=== PATIENT | female | born 1970 | race Caucasian/White ===

== ENCOUNTER → 2016-04-25 | Outpatient (CLI) | payer BC ==
[~2016-04-25] MED LIST: ATEN25TA PO; CIPR-250 PO; CITA20TA4 PO; COQ-100C2 PO; IBUP-1114 PO; LOMO2.5T PO; NORC5TAB PO; NORT25CA2 PO; OMEP40CA2 PO; TRAZ100T4 PO; VITA100T98 PO
--- NOTE | 2016-04-25 11:35 | REP ---
MRI THORACIC SPINE WITHOUT CONTRAST: HISTORY: Mid back pain. A small right paracentral disc protrusion is present at the T3-4 level. There is minimal effacement of the thecal sac without spinal cord compression. The T3 neural foramina are patent. There is no other disc bulge or herniation. The remaining neural foramina are patent. The spinal cord is normal in signal intensity. There is no intradural extramedullary lesion. A hemangioma is present in the T9 vertebral body. Normal signal intensity is present in the remaining thoracic vertebral bodies. Anterior osteophytes are present throughout the thoracic spine. IMPRESSION: Small right paracentral disc protrusion at the T3-4 level without spinal cord compression. Signed by Jefferson Cunningham MD 04/25/2016 11:36 A
== END ==
LOC: M RAD 10:30
PROVIDERS: ATTEND Neurological Surgery
DX: M43.04 Spondylolysis, thoracic region (principal)

== ENCOUNTER → 2016-06-06 | Outpatient (CLI) | payer BC ==
[2016-06-06 09:04] LABS: ALBUMIN 3.5 GM/DL (3.2-5.2); ALBUMIN/GLOBULIN RATIO 0.97 (1.00-1.93); ALKALINE PHOSPHATASE 140 U/L (45-117); ALT/SGPT 27 U/L (12-78); AST/SGOT 21 U/L (15-37); BILIRUBIN,DIRECT < 0.1 MG/DL (0.0-0.2); BILIRUBIN,TOTAL 0.3 MG/DL (0.2-1.0); TOTAL PROTEIN 7.1 GM/DL (6.4-8.2)
== END ==
LOC: M LAB 07:56
PROVIDERS: ATTEND Internal Medicine Rheumatology
DX: M35.9 Systemic involvement of connective tissue, unspecified (principal); K76.0 Fatty (change of) liver, not elsewhere classified; Z79.899 Other long term (current) drug therapy

== ENCOUNTER → 2016-06-06 | Outpatient (CLI) | payer BC ==
[2016-06-06 09:01] LABS: BASO % 0.5 % (0.0-1.0); EOS # 0.2 K/mm3 (0.0-0.50); LARGE UNSTAINED CELL # 0.1 K/mm3 (0.0-0.4); LARGE UNSTAINED CELL % 1.3 % (0.0-4.0); LYMPH # 1.9 K/mm3 (1.5-4.5); LYMPH % 28.6 % (24.0-44.0); MEAN CORPUSCULAR HEMOGLOBIN 29.7 pg (27.0-33.0); MEAN CORPUSCULAR HGB CONC 34.3 g/dl (32.0-36.5); MEAN CORPUSCULAR VOLUME 86.8 fl (80.0-96.0); MONO # 0.3 K/mm3 (0.0-0.8); MONO % 5.1 % (0.0-5.0); NEUTROPHILS # 3.8 K/mm3 (1.8-7.7); NEUTROPHILS % 60.6 % (36.0-66.0); PLATELET COUNT, AUTOMATED 243 k/mm3 (150-450); RED CELL DISTRIBUTION WIDTH 12.3 % (11.5-14.5); WHITE BLOOD COUNT 6.3 K/mm3 (4.0-10.0)
[2016-06-06 09:04] LABS: ALBUMIN 3.4 GM/DL (3.2-5.2); ALKALINE PHOSPHATASE 143 U/L (45-117); ALT/SGPT 27 U/L (12-78); ANION GAP 6 MEQ/L (8-16); AST/SGOT 23 U/L (15-37); BILIRUBIN,TOTAL 0.3 MG/DL (0.2-1.0); BLOOD UREA NITROGEN 10 MG/DL (7-18); CALCIUM LEVEL 9.5 MG/DL (8.5-10.1); CARBON DIOXIDE LEVEL 27 MEQ/L (21-32); CHLORIDE LEVEL 108 MEQ/L (98-107); GLOMERULAR FILTRATION RATE > 60.0 (>58); GLUCOSE, FASTING 128 MG/DL (70-105); POTASSIUM SERUM 3.7 MEQ/L (3.5-5.1); SODIUM LEVEL 141 MEQ/L (136-145); TOTAL PROTEIN 6.8 GM/DL (6.4-8.2)
== END ==
LOC: M LAB 07:58
PROVIDERS: ATTEND Psychiatry & Neurology Neurology
DX: R51 Headache (principal)

== ENCOUNTER 2016-06-29 11:35 | Emergency (ER) | payer BC ==
[~2016-06-29] VITALS: Ht 149.9 cm; Wt 61.7 kg
[2016-06-29 11:36] VITALS: BP 139/67
[2016-06-29] MEDS ORDERED: ZONI50CA3 (12:01)
[2016-06-29] MEDS ORDERED: RANI150T (12:01)
[2016-06-29] MEDS ORDERED: RIZA10TA4 (12:01)
[2016-06-29] MEDS ORDERED: PROA1AER (12:01)
[2016-06-29] MEDS ORDERED: ASMA16.7 (12:01)
[2016-06-29] MEDS ORDERED: AZIT500T2 PO (12:01)
[2016-06-29] MEDS ORDERED: NS 1,000 ML IV ONE (12:15)
[2016-06-29] MEDS ORDERED: KETOROLAC 30 MG/ML VIAL (J1885) IV ONE (12:15)
[2016-06-29 12:49] LABS: BASO % 0.4 % (0.0-1.0); EOS # 0.2 K/mm3 (0.0-0.50); EOS % 2.6 % (0.0-3.0); LARGE UNSTAINED CELL # 0.1 K/mm3 (0.0-0.4); LARGE UNSTAINED CELL % 1.7 % (0.0-4.0); LYMPH # 2.3 K/mm3 (1.5-4.5); LYMPH % 30.8 % (24.0-44.0); MEAN CORPUSCULAR HEMOGLOBIN 29.5 pg (27.0-33.0); MEAN CORPUSCULAR HGB CONC 33.8 g/dl (32.0-36.5); MEAN CORPUSCULAR VOLUME 87.4 fl (80.0-96.0); MONO # 0.3 K/mm3 (0.0-0.8); MONO % 4.8 % (0.0-5.0); NEUTROPHILS # 4.3 K/mm3 (1.8-7.7); NEUTROPHILS % 59.8 % (36.0-66.0); PLATELET COUNT, AUTOMATED 297 k/mm3 (150-450); RED CELL DISTRIBUTION WIDTH 13.1 % (11.5-14.5); WHITE BLOOD COUNT 7.2 K/mm3 (4.0-10.0)
[2016-06-29] MEDS ORDERED: ONDANSETRON 4MG/2ML VIAL (J2405) IV ONE (13:00)
[2016-06-29 13:06] LABS: ALKALINE PHOSPHATASE 160 U/L (45-117); ALT/SGPT 23 U/L (12-78); AMYLASE 53 U/L (25-115); ANION GAP 9 MEQ/L (8-16); AST/SGOT 23 U/L (15-37); BILIRUBIN,DIRECT 0.1 MG/DL (0.0-0.2); BILIRUBIN,TOTAL 0.4 MG/DL (0.2-1.0); BLOOD UREA NITROGEN 12 MG/DL (7-18); CALCIUM LEVEL 9.6 MG/DL (8.5-10.1); CARBON DIOXIDE LEVEL 26 MEQ/L (21-32); CHLORIDE LEVEL 104 MEQ/L (98-107); CREATININE FOR GFR 0.91 MG/DL (0.55-1.02); GLOMERULAR FILTRATION RATE > 60.0 (>58); GLUCOSE, FASTING 85 MG/DL (70-105); POTASSIUM SERUM 3.7 MEQ/L (3.5-5.1); SODIUM LEVEL 139 MEQ/L (136-145)
[2016-06-29] MEDS ORDERED: ISOVUE-370 76% 100ML VIAL (Q9967) As Ordered ONE (13:09)
[2016-06-29] MEDS ORDERED: BENT20TA PO (13:43)
[2016-06-29] MEDS ORDERED: ZOFR4TAB3 PO (13:44)
--- NOTE | 2016-06-29 13:55 | REP ---
CT STUDY OF THE ABDOMEN AND PELVIS WITH IV BUT WITHOUT ORAL CONTRAST: HISTORY: Question diverticulitis. Left upper quadrant pain. CT contrast dose: 100 mL of Isovue 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 Air and stool is seen in a nondistended colon. The lung bases are clear. The liver and spleen are normal in size and homogeneous in texture. No adrenal lesion is seen on either side. The gallbladder is unremarkable. No pancreatic abnormality is seen. Kidneys enhance symmetrically and are morphologically intact. A normal caliber aorta is seen. No retroperitoneal mass or adenopathy is seen. A normal non-inflamed air-filled appendix is seen along the right lateral pelvic side wall. No ovarian abnormality is seen. The uterus is surgically absent. The urinary bladder is unremarkable. No abdominal wall defect is seen. No urinary tract calculus or hydronephrosis is seen. There is mild mural thickening involving the left colon in the descending segment distal to the splenic flexure. There is no evidence of diverticulosis or diverticulitis. Large bowel loops are otherwise unremarkable. There is air and fluid in nondilated small bowel loops on axial CT images. No free air or ascites is seen. Bone window settings show no bony destructive lesion. IMPRESSION: Mild mural thickening involving the descending colon question enterocolitis. No other acute abdominal or pelvic abnormality. Signed by Abdi Polk MD 06/29/2016 06:19 P
== END 2016-06-29 14:06 | disposition home or self-care (01) ==
LOC: M ED 13:08
DX: K58.9 Irritable bowel syndrome, unspecified (principal); K83.9 Disease of biliary tract, unspecified; Z79.899 Other long term (current) drug therapy; Z79.51 Long term (current) use of inhaled steroids; Z88.0 Allergy status to penicillin; Z88.8 Allergy status to other drugs, medicaments and biological substances; Z88.1 Allergy status to other antibiotic agents; Z91.040 Latex allergy status
CPT/HCPCS: 74177; 80048; 80076; 81001; 82150; 83690; 85025; 96374; 96375; 99282; J1885; J2405; Q9967

== ENCOUNTER 2016-09-16 09:42 | Emergency (ER) | payer BC ==
[~2016-09-16] VITALS: Ht 149.9 cm; Wt 59.0 kg
[~2016-09-16 09:42] MED LIST changes: +ASMA16.7; +AZIT500T2 PO; +BENT20TA PO; +NORC1TAB4 PO; -NORC5TAB PO; +PROA1AER; +RANI150T; +RIZA10TA4; +ZOFR4TAB3 PO; +ZONI50CA3
[2016-09-16 12:00] LABS: BASO % 0.4 % (0.0-1.0); EOS # 0.1 K/mm3 (0.0-0.50); EOS % 1.8 % (0.0-3.0); LARGE UNSTAINED CELL # 0.1 K/mm3 (0.0-0.4); LARGE UNSTAINED CELL % 1.7 % (0.0-4.0); LYMPH # 1.4 K/mm3 (1.5-4.5); LYMPH % 24.8 % (24.0-44.0); MEAN CORPUSCULAR HEMOGLOBIN 29.6 pg (27.0-33.0); MEAN CORPUSCULAR HGB CONC 33.7 g/dl (32.0-36.5); MEAN CORPUSCULAR VOLUME 87.8 fl (80.0-96.0); MONO # 0.3 K/mm3 (0.0-0.8); MONO % 4.4 % (0.0-5.0); NEUTROPHILS # 3.8 K/mm3 (1.8-7.7); NEUTROPHILS % 66.9 % (36.0-66.0); PLATELET COUNT, AUTOMATED 222 k/mm3 (150-450); RED CELL DISTRIBUTION WIDTH 12.4 % (11.5-14.5); WHITE BLOOD COUNT 5.7 K/mm3 (4.0-10.0)
[2016-09-16 12:14] LABS: ANION GAP 5 MEQ/L (8-16); BLOOD UREA NITROGEN 6 MG/DL (7-18); CALCIUM LEVEL 9.8 MG/DL (8.5-10.1); CARBON DIOXIDE LEVEL 28 MEQ/L (21-32); CHLORIDE LEVEL 109 MEQ/L (98-107); CREATININE FOR GFR 0.81 MG/DL (0.55-1.02); GLOMERULAR FILTRATION RATE > 60.0 (>58); GLUCOSE, FASTING 96 MG/DL (70-105); POTASSIUM SERUM 3.9 MEQ/L (3.5-5.1); SODIUM LEVEL 142 MEQ/L (136-145)
[2016-09-16 13:07] VITALS: BP 125/68
--- NOTE | 2016-09-16 13:39 | REP ---
CERVICAL SPINE, SEVEN VIEWS: HISTORY: Neck pain. COMPARISON: 02/11/2016. The patient is status post C5-7 anterior spinal fusion. A fixation plate and bone graft material are present. There is no acute fracture or subluxation. The C4-5 intervertebral disc is decreased in height consistent with disc degeneration . There is narrowing of the C5 and 6 neural foramina secondary to uncinate process hypertrophy. IMPRESSION: 1. The patient is status post C5-7 anterior spinal fusion. There is anatomic alignment. 2. There is cervical spondylosis at the C4-5 through C6-7 levels. Signed by Jefferson Cunningham MD 09/16/2016 01:45 P
== END 2016-09-16 13:08 | disposition home or self-care (01) ==
LOC: M ED 11:19
DX: R07.0 Pain in throat (principal); J45.909 Unspecified asthma, uncomplicated; F33.9 Major depressive disorder, recurrent, unspecified; G43.909 Migraine, unspecified, not intractable, without status migrainosus; Z87.19 Personal history of other diseases of the digestive system; Z98.1 Arthrodesis status; Z79.899 Other long term (current) drug therapy; Z88.0 Allergy status to penicillin; Z88.1 Allergy status to other antibiotic agents; Z88.8 Allergy status to other drugs, medicaments and biological substances; Z91.018 Allergy to other foods

== ENCOUNTER → 2017-03-17 | Outpatient (CLI) | payer BC ==
[~2017-03-17] MED LIST changes: -PROA1AER; +PROAAER10; +TRAZ-136 PO; -TRAZ100T4 PO
--- NOTE | 2017-03-17 10:03 | REP ---
Clinical: Cough . Comparison: 01/08/2016 . Technique: PA and lateral. Findings: The mediastinum and cardiac silhouette are normal. The lung marina are clear and without acute consolidation, effusion, or pneumothorax. The skeletal structures are intact and normal. Impression: 1. No acute cardiopulmonary process. Signed by Rocky Amato MD 03/17/2017 09:55 A
== END ==
LOC: M RAD 09:37
PROVIDERS: ATTEND Nurse Practitioner Family
DX: R05 Cough (principal); M54.5 Low back pain

== ENCOUNTER → 2017-04-24 | Outpatient (REF) | payer BC | LOC: M LAB REF 12:01 | DX: J01.00 Acute maxillary sinusitis, unspecified (principal) | CPT/HCPCS: 87070 ==

== ENCOUNTER 2017-05-09 09:02 | Outpatient (RCR) | payer BC | END 2017-05-17 | LOC: M ST 09:02 | DX: R13.10 Dysphagia, unspecified (principal); Z98.1 Arthrodesis status | CPT/HCPCS: 92610 ==

== ENCOUNTER → 2017-05-22 | Outpatient (CLI) | payer BC ==
[~2017-05-22] MED LIST changes: -ASMA16.7; -ATEN25TA PO; -AZIT500T2 PO; -BENT20TA PO; -CIPR-250 PO; -CITA20TA4 PO; -COQ-100C2 PO; -IBUP-1114 PO; -LOMO2.5T PO; -NORC1TAB4 PO; -NORT25CA2 PO; -OMEP40CA2 PO; -PROAAER10; +PROHANCE 279.3MG/ML 15ML VIAL (A9576) As Ordered; -RANI150T; -RIZA10TA4; -TRAZ-136 PO; -VITA100T98 PO; -ZOFR4TAB3 PO; -ZONI50CA3
== END ==
LOC: M RAD 09:34
DX: H90.A21 Sensorineural hearing loss, unilateral, right ear, with restricted hearing on the contralateral side (principal)
CPT/HCPCS: A9576

== ENCOUNTER → 2017-09-26 | Outpatient (CLI) | payer BC | LOC: M WHC 12:40 | DX: R10.2 Pelvic and perineal pain (principal) | CPT/HCPCS: 76830 ==

== ENCOUNTER → 2017-11-06 | Outpatient (CLI) | payer BC | LOC: M WHC 09:08 | DX: Z12.31 Encounter for screening mammogram for malignant neoplasm of breast (principal); Z80.3 Family history of malignant neoplasm of breast | CPT/HCPCS: 77067 ==

== ENCOUNTER → 2018-01-01 | Outpatient (REF) | payer BC | LOC: M LAB REF 14:24 | DX: K52.89 Other specified noninfective gastroenteritis and colitis (principal) | CPT/HCPCS: 87507 ==

== ENCOUNTER → 2018-03-27 | Outpatient (REF) | payer BC | LOC: M LAB REF 11:58 | DX: R19.7 Diarrhea, unspecified (principal); K58.8 Other irritable bowel syndrome | CPT/HCPCS: 87507 ==

== ENCOUNTER 2018-04-19 05:49 | Day surgery (SDC) | payer BC ==
[~2018-04-19] VITALS: Ht 149.9 cm; Wt 55.8 kg
[~2018-04-19 05:49] MED LIST changes: +ASMA16.7 INH; +ATEN25TA PO; +AZIT500T2 PO; +BENT20TA PO; +CIPR-250 PO; +CITA20TA4 PO; +COQ-100C2 PO; +DICY1CAP8 PO; +IBUP-1114 PO; +LOMO2.5T PO; +NORC1TAB4 PO; +NORT25CA2 PO; +OMEP40CA2 PO; +PROAAER10; -PROHANCE 279.3MG/ML 15ML VIAL (A9576) As Ordered; +RANI150T PO; +RIZA10TA4; +TRAZ-163 PO; +VITA100T98 PO; +ZOFR4TAB14 PO; +ZONI100C2 PO; +ZONI50CA3
[2018-04-19] MEDS ORDERED: LR 1,000 ML IV ONE (07:00)
[2018-04-19] MEDS ORDERED: LIDOCAINE 2% INJ 100 MG/5 ML SDV (FOR ANES.) As Ordered ONE (07:18)
[2018-04-19] MEDS ORDERED: PROPOFOL 200 MG/20 ML VIAL As Ordered ONE (07:18)
[2018-04-19] MEDS ORDERED: ROCURONIUM BROMIDE 50 MG/5 ML VIAL As Ordered ONE (07:18)
[2018-04-19] MEDS ORDERED: MIDAZOLAM INJ 2 MG/2 ML VIAL (J2250) As Ordered ONE (07:19)
[2018-04-19] MEDS ORDERED: fentaNYL 250 MCG/5 ML INJECTION (J3010) As Ordered ONE (07:19)
[2018-04-19] MEDS ORDERED: ePHEDrine SULFATE 25 MG/5 ML(5MG/ML) SYRINGE As Ordered ONE (08:23)
[2018-04-19] MEDS ORDERED: METOCLOPRAMIDE INJ 10MG/2ML VIAL (J2765) As Ordered ONE (08:46)
[2018-04-19] MEDS ORDERED: NEOSTIGMINE 10 MG/10 ML VIAL (J2710) As Ordered ONE (08:46)
[2018-04-19] MEDS ORDERED: KETOROLAC 60 MG/2 ML VIAL (J1885) As Ordered ONE (08:46)
[2018-04-19] MEDS ORDERED: GLYCOPYRROLATE INJ 0.2 MG/ML 2 ML VIAL As Ordered ONE (08:46)
[2018-04-19] MEDS ORDERED: ONDANSETRON 4MG/2ML VIAL (J2405) As Ordered ONE (08:46)
[2018-04-19] MEDS ORDERED: dexameTHASONE 4 MG/ML 1ML VIAL (J1100) As Ordered ONE (08:46)
[2018-04-19] MEDS ORDERED: fentaNYL 100 MCG/2 ML INJECTION (J3010) As Ordered ONE (10:00)
[2018-04-19] MEDS: fentaNYL 100 MCG/2 ML INJECTION (J3010) IV PRN ×4 (10:00→10:15)
[2018-04-19] MEDS ORDERED: LR 1,000 ML IV SCH ×2 (10:15)
[2018-04-19] MEDS ORDERED: IBUPROFEN 600 MG TAB PO PRN (10:15)
[2018-04-19] MEDS ORDERED: MORPHINE 10 MG/ML 1ML VIAL (J2270) IV PRN (10:15)
[2018-04-19] MEDS ORDERED: NORCO, ANEXSIA 5/325MG TABLET (HYDROcodone/ACETAMINOPHEN) PO PRN (10:15)
[2018-04-19] MEDS ORDERED: ONDANSETRON 4MG/2ML VIAL (J2405) IV PRN (10:15)
[2018-04-19 11:50] VITALS: BP 132/68
--- NOTE | 2018-04-19 16:33 | RO ---
DATE OF PROCEDURE: 04/19/2018 PREOPERATIVE DIAGNOSIS AND INDICATION FOR SURGERY: Pain and also the patient had adhesions. POSTOPERATIVE DIAGNOSIS: Pain and adhesions. PROCEDURE: Laparoscopy with bilateral salpingo-oophorectomy and lysis of adhesions. SURGEON: Dr. Ashia Hall [employer]ALTHCARE ADMINISTRATION INTERN: Connie Zamora. ANESTHESIA: General endotracheal anesthesia. SPECIMEN: Bilateral ovaries and tubes. BRIEF DESCRIPTION OF PROCEDURE AND FINDINGS: Pamela was brought to the operating room where sufficient general endotracheal anesthesia was induced. She was prepped and draped and positioned in the usual sterile fashion. She has had a previous hysterectomy so she did not need a uterine manipulator but we did place and a sponge and a stick in the vagina in order to facilitate anatomic localization as well as a Huber in the bladder again to help with localization of the bladder. We then turned our attention to the abdomen. A semilunar incision was made at the base of the umbilicus. Sharp and blunt dissection were continued to the subcutaneous tissues to the level of the rectus fascia which was grasped with Donya clamps, elevated and transversely incised under direct visualization. The peritoneum ws entered again under direct visualization and the Felecia cannula was placed in an open laparoscopic technique and secured in placed with 0-Vicryl retention sutures which have been placed in the fascia. CO2 insufflation was then begun. After adequate CO2 insufflation the peritoneal cavity was visualized. There are normal shiny peritoneal surfaces throughout. There is no exudate. There were adhesions, none of thee appeared to be postoperative but of course we can not know this. There are also adhesions of the appendix to the right lower quadrant. The appendix itself was not inflamed and not distended. There does not appear to be any fecalith or any problems there. It was in its normal anatomic position but slight adherent to the peritoneum. Photographs were taken and this was left in place since that is its normal location and there might be other expectations that those were reformed. There are also adhesions at the upper portion of the descending colon, two in the vaginal cuff and to the bladder and some of the descending colon to the lateral pelvic side wall and photographs were taken to document the findings. The ovaries themselves not surprising had two adhesions around them as well and the remnant of the fallopian tubes. We placed a midline 5 mm port for a grasper and elevated the right ovary and tube. We were then able to use the Enseal through the operative port to carefully cauterize and transect in to the pelvic ligament. We were readily able to identify the ureter and although there were adhesions and we have to use the cold scissors at times to free the ovary we were able to stay away from that ureter. We also took down some of the adhesions with of the bowel and freed it up in the pelvis and freed the bladder from it fully. We then turned our attention to the left side and used the grasper again to elevate the ovary and tube and carefully use the Enseal to cauterize and transect the infundibulum pelvic blood supply and the attached remnant of the round ligament which had to be bilaterally. I then broke down the rest of those adhesions using cold scissors whenever we were close to bowel and without any significant difficulties with bleeding. We then further took down some of the adhesions of the descending colon. It was in its normal anatomic position so we did not try to detach it from this of course but we tried to detach the anterior adhesions which are not typical and sort of free it so it would be normal mobile and of course we the bladder from it which is not typically attached. Having all of those adhesions and removed the ovaries we then switched out the operative scope for 5 mm scope in the 5 mm port so we could put the Endo Catch bag down the umbilical site and then use that larger opening for removing both ovaries and tubes in the Endo Catch bag. Those were removed out the umbilicus. We then replaced the original scope so we could double check the pelvis. We confirmed good hemostasis etc and then with both ovaries and tubes removed the adhesions already lysed and good hemostasis achieved and no evidence of injury to ureters, bowel or bladder we then ended the case and removing the instruments, letting the CO2 escape the abdomen. Closing the fascia wound at the umbilicus with the 0 Vicryl retention sutures and closing the skin at both wounds with subcuticular 3-0 Vicryl stitches. Dry sterile dressing was then applied to both wounds. Of course the Huber and the vaginal manipulators were removed and the procedure ended. ESTIMATED BLOOD LOSS FOR PROCEDURE: Maybe 5 mL. FLUID REPLACEMENT: Crystalloid. COMPLICATIONS: None. CONDITION AND DISPOSITION: Pamela tolerated the procedure well and was recovering in the recovery room in good condition.
== END 2018-04-19 12:00 | disposition home or self-care (01) ==
LOC: M SDC 05:49
PROVIDERS: ATTEND Obstetrics & Gynecology
DX: R10.2 Pelvic and perineal pain (principal); N83.10 Corpus luteum cyst of ovary, unspecified side; N83.00 Follicular cyst of ovary, unspecified side; N73.6 Female pelvic peritoneal adhesions (postinfective); G47.30 Sleep apnea, unspecified; Z91.040 Latex allergy status; Z88.0 Allergy status to penicillin; Z88.8 Allergy status to other drugs, medicaments and biological substances; K58.8 Other irritable bowel syndrome; K21.9 Gastro-esophageal reflux disease without esophagitis; M81.0 Age-related osteoporosis without current pathological fracture; Z79.899 Other long term (current) drug therapy
CPT/HCPCS: 58661; 88305; J1100; J1885; J2250; J2405; J2710; J2765; J3010

== ENCOUNTER 2018-05-07 06:47 | Day surgery (SDC) | payer BC ==
[~2018-05-07] VITALS: Ht 147.3 cm; Wt 53.1 kg
[2018-05-07] MEDS ORDERED: NS 1,000 ML IV SCH (07:00)
[2018-05-07] MEDS ORDERED: LIDOCAINE 2% INJ 100 MG/5 ML SDV (FOR ANES.) As Ordered ONE (07:13)
[2018-05-07] MEDS ORDERED: PROPOFOL 200 MG/20 ML VIAL As Ordered ONE (07:13)
[2018-05-07] MEDS ORDERED: fentaNYL 100 MCG/2 ML INJECTION (J3010) As Ordered ONE (07:41)
--- NOTE | 2018-05-07 08:15 | ROOR ---
Patient Name: Pamela Kathleen Procedure Date: 05/07/2018 7:58 AM Date of : 1970 Age: 48 Room: [facility] Gender: Female Note Status: Finalized Procedure: Upper Endoscopy + Biopsies Indications: Heartburn, Exclusion of Jaramillo's esophagus Providers: Kaz Myrick MD Referring MD: Esvin Santos MD Requesting Provider: Medicines: Monitored Anesthesia Care Complications: No immediate complications. Procedure: Pre-Anesthesia Assessment: - The heart rate, respiratory rate, oxygen saturations, blood pressure, adequacy of pulmonary ventilation, and response to care were monitored throughout the procedure. The Endoscope was introduced through the mouth, and advanced to the second part of duodenum. The upper GI endoscopy was accomplished without difficulty. The patient tolerated the procedure well. Findings: The Z-line was irregular and was found 35 cm from the incisors. Multiple biopsies were obtained with cold forceps for evaluation to rule out Jaramillo's Esophagus randomly at the gastroesophageal junction. A small hiatal hernia was present. No other significant abnormalities were identified in a careful examination of the stomach. The exam of the duodenum was otherwise normal. Impression: - Z-line irregular, 35 cm from the incisors. - Small hiatal hernia. - Multiple biopsies were obtained at the gastroesophageal junction. - The examination was otherwise normal. Recommendation: - Patient has a contact number available for emergencies. The signs and symptoms of potential delayed complications were discussed with the patient. Return to normal activities tomorrow. Written discharge instructions were provided to the patient. - High fiber diet. - Discharge patient to home. - Follow an antireflux regimen. - Continue present medications. - Await pathology results. - Telephone GI clinic for pathology results in 1 week. - Return to referring physician. - Check Portal Online for Path Results.([email or web address]) - The findings and recommendations were discussed with the patient's family. Kaz Myrick MD Kaz Myrick MD 05/07/2018 8:15:19 AM This report has been signed electronically. Number of Addenda: 0 Note Initiated On: 05/07/2018 7:58 AM Estimated Blood Loss: Estimated blood loss: none.
--- NOTE | 2018-05-07 08:31 | ROOR ---
Patient Name: Pamela Kathleen Procedure Date: 05/07/2018 7:59 AM Date of : 1970 Age: 48 Room: [facility] Gender: Female Note Status: Finalized Procedure: Total Colonoscopy to Cecum + Bx. To r/o Microscopic Colitis Indications: Lower abdominal pain, Clinically significant diarrhea of unexplained origin Providers: Kaz Myrick MD Referring MD: Esvin Santos MD Requesting Provider: Medicines: Monitored Anesthesia Care Complications: No immediate complications. Procedure: Pre-Anesthesia Assessment: - The heart rate, respiratory rate, oxygen saturations, blood pressure, adequacy of pulmonary ventilation, and response to care were monitored throughout the procedure. The Colonoscope was introduced through the anus and advanced to the cecum, identified by appendiceal orifice and ileocecal valve. The colonoscopy was performed without difficulty. The patient tolerated the procedure well. The quality of the bowel preparation was excellent. Findings: The perianal and digital rectal examinations were normal. No other significant abnormalities were identified in a careful examination of the remainder of the colon. Biopsies for histology were taken with a cold forceps from the ascending colon, transverse colon and descending colon for evaluation of microscopic colitis. The exam was otherwise without abnormality on direct and retroflexion views. Impression: - The examination was otherwise normal on direct and retroflexion views. - Biopsies were taken with a cold forceps from the ascending colon, transverse colon and descending colon for evaluation of microscopic colitis. - The exam was otherwise normal to the cecum. Recommendation: - Patient has a contact number available for emergencies. The signs and symptoms of potential delayed complications were discussed with the patient. Return to normal activities tomorrow. Written discharge instructions were provided to the patient. - High fiber diet. - Continue present medications. - Await pathology results. - Telephone GI clinic for pathology results in 1 week. - Return to referring physician. - The findings and recommendations were discussed with the patient's family. Kaz Myrick MD Kaz Myrick MD 05/07/2018 8:31:12 AM This report has been signed electronically. Number of Addenda: 0 Note Initiated On: 05/07/2018 7:59 AM Estimated Blood Loss: Estimated blood loss: none.
[2018-05-07] MEDS ORDERED: NALOXONE INJ 0.4 MG/1 ML VIAL (J2310) As Ordered ONE (09:32)
[2018-05-07 09:45] VITALS: BP 134/71
[2018-05-07] MEDS ORDERED: NALOXONE INJ 0.4 MG/1 ML VIAL (J2310) IV PRN (09:45)
== END 2018-05-07 10:00 | disposition home or self-care (01) ==
LOC: M OPP 06:47
PROVIDERS: ATTEND Internal Medicine Gastroenterology
DX: R10.30 Lower abdominal pain, unspecified (principal); R19.7 Diarrhea, unspecified; K22.8 Other specified diseases of esophagus; K44.9 Diaphragmatic hernia without obstruction or gangrene; R12 Heartburn; Z79.899 Other long term (current) drug therapy; Z88.0 Allergy status to penicillin; Z88.1 Allergy status to other antibiotic agents; Z91.040 Latex allergy status; Z91.018 Allergy to other foods
CPT/HCPCS: 43239; 45380; 88305; J3010

== ENCOUNTER → 2018-10-02 | Outpatient (CLI) | payer BC ==
[~2018-10-02] MED LIST changes: -CITA20TA4 PO; +CITA20TA6 PO; -NORC1TAB4 PO; +NORC1TAB7 PO
[2018-10-02 14:17] LABS: BASO % 0.5 % (0.0-1.0); EOS # 0.4 10^3/uL (0.0-0.50); EOS % 6.6 % (0.0-3.0); HEMATOCRIT 40.8 % (36.0-47.0); HEMOGLOBIN 13.5 g/dl (12.0-15.5); LYMPH % 31.3 % (24.0-44.0); MEAN CORPUSCULAR HGB CONC 33.1 g/dl (32.0-36.5); MEAN CORPUSCULAR VOLUME 87.7 fl (80.0-96.0); MONO # 0.5 10^3/uL (0.0-0.8); MONO % 7.9 % (0.0-5.0); NEUTROPHILS # 3.3 10^3/uL (1.8-7.7); NEUTROPHILS % 53.4 % (36.0-66.0); PLATELET COUNT, AUTOMATED 244 10^3/uL (150-450); RED BLOOD COUNT 4.65 10^6/uL (4.00-5.40); WHITE BLOOD COUNT 6.2 10^3/uL (4.0-10.0)
[2018-10-02 14:46] LABS: ALBUMIN 3.4 GM/DL (3.2-5.2); ALT/SGPT 29 U/L (12-78); BILIRUBIN,TOTAL 0.2 MG/DL (0.2-1.0); BLOOD UREA NITROGEN 9 MG/DL (7-18); CALCIUM LEVEL 9.8 MG/DL (8.5-10.1); CARBON DIOXIDE LEVEL 32 MEQ/L (21-32); CHLORIDE LEVEL 106 MEQ/L (98-107); CREATININE FOR GFR 0.84 MG/DL (0.55-1.30); GLOMERULAR FILTRATION RATE > 60.0 (>58); GLUCOSE, FASTING 101 MG/DL (70-100); SODIUM LEVEL 141 MEQ/L (136-145); TOTAL PROTEIN 7.1 GM/DL (6.4-8.2)
== END ==
LOC: M LAB 13:36
PROVIDERS: ATTEND Psychiatry & Neurology Neurology
DX: R51 Headache (principal)

== ENCOUNTER → 2018-10-15 | Outpatient (CLI) | payer BC ==
[~2018-10-15] MED LIST changes: -AZIT500T2 PO; +AZIT500T5 PO; +DICL1GEL3 TOP; +DICY10CA13 PO; +EZET10TA21 PO; +IBUP200T45 PO; +MOBI4TAB PO; -OMEP40CA2 PO; +OMEP40CA97 PO; -RIZA10TA4; +RIZA10TA58; -TRAZ-163 PO; +TRAZ-257 PO; +ZONI100C17 PO; -ZONI100C2 PO; +ZONI50CA11; -ZONI50CA3
--- NOTE | 2018-10-15 13:15 | REP ---
Clinical: Bilateral hip pain. Technique: Neutral and frog lateral views of the right and left hip. Findings: Osseous structures, joint spaces, and surrounding soft tissues are essentially normal for age. No overt osteoarthritic degenerative changes are appreciated. Surrounding soft tissues are unremarkable. Impression: Normal symmetric bilateral hip radiographs. Electronically Signed by Rocky Amato MD 10/15/2018 01:06 P
== END ==
LOC: M RAD 12:36 → M LAB 12:36
PROVIDERS: ATTEND Internal Medicine Rheumatology
DX: M25.559 Pain in unspecified hip (principal)

== ENCOUNTER → 2018-12-18 | Outpatient (REF) | payer BC ==
[~2018-12-18] MED LIST changes: +AZIT500T2 PO; -AZIT500T5 PO; -DICL1GEL3 TOP; -DICY10CA13 PO; -EZET10TA21 PO; -IBUP200T45 PO; -MOBI4TAB PO; +OMEP40CA2 PO; -OMEP40CA97 PO; +RIZA10TA4; -RIZA10TA58; +TRAZ-163 PO; -TRAZ-257 PO; -ZONI100C17 PO; +ZONI100C2 PO; -ZONI50CA11; +ZONI50CA3
[2018-12-18 20:35] LABS: C REACTIVE PROTEIN QUANTITATIV 0.74 MG/DL (0.00-0.30)
== END ==
LOC: M LAB REF 17:18
PROVIDERS: ATTEND Family Medicine
DX: K76.0 Fatty (change of) liver, not elsewhere classified (principal); R53.83 Other fatigue

== ENCOUNTER 2019-01-11 08:01 | Emergency (ER) | payer BC ==
[~2019-01-11] VITALS: Ht 147.3 cm; Wt 57.6 kg
[~2019-01-11 08:01] MED LIST changes: -AZIT500T2 PO; +AZIT500T5 PO; -OMEP40CA2 PO; +OMEP40CA97 PO; -RIZA10TA4; +RIZA10TA58; -TRAZ-163 PO; +TRAZ-257 PO; +ZONI100C17 PO; -ZONI100C2 PO; +ZONI50CA11; -ZONI50CA3
[2019-01-11] MEDS ORDERED: EZET10TA21 PO (08:14)
[2019-01-11] MEDS ORDERED: IBUP200T45 PO (08:14)
[2019-01-11] MEDS ORDERED: DICL1GEL3 TOP (08:14)
--- NOTE | 2019-01-11 10:30 | REP ---
Right lower extremity Duplex Doppler venous ultrasound: Real time compression and duplex Doppler interrogation of the right lower extremity deep venous system is performed. The right common femoral, superficial femoral and popliteal veins are fully compressible with transducer pressure and demonstrate normal spontaneous and phasic flow, without evidence of deep venous thrombosis. Impression: No evidence of deep venous thrombosis of the right lower extremity femoral popliteal venous system. Electronically Signed by Davis Joe MD 01/11/2019 10:21 A
[2019-01-11] MEDS ORDERED: MOBI4TAB PO (11:28)
[2019-01-11 12:24] VITALS: BP 140/70
--- NOTE | 2019-01-11 15:22 | REP ---
RIGHT KNEE, TWO VIEWS: Two views right knee performed. No acute fracture or dislocation is seen. There is a moderate medial joint space narrowing with subchondral sclerosis and mild spurring. I do not see a joint effusion. IMPRESSION: Moderate degenerative changes medial joint. Electronically Signed by Davis Joe MD 01/11/2019 05:01 P
== END 2019-01-11 12:26 | disposition home or self-care (01) ==
LOC: M ED 08:01
DX: M17.11 Unilateral primary osteoarthritis, right knee (principal); Z88.0 Allergy status to penicillin; Z88.1 Allergy status to other antibiotic agents; Z88.8 Allergy status to other drugs, medicaments and biological substances; Z91.040 Latex allergy status; Z90.710 Acquired absence of both cervix and uterus; Z90.722 Acquired absence of ovaries, bilateral; G43.909 Migraine, unspecified, not intractable, without status migrainosus; E78.00 Pure hypercholesterolemia, unspecified; J45.909 Unspecified asthma, uncomplicated; G47.30 Sleep apnea, unspecified; K21.9 Gastro-esophageal reflux disease without esophagitis; K76.0 Fatty (change of) liver, not elsewhere classified; Z79.899 Other long term (current) drug therapy

== ENCOUNTER 2019-02-03 16:31 | Emergency (ER) | payer BC ==
[~2019-02-03] VITALS: Ht 147.3 cm; Wt 57.7 kg
[~2019-02-03 16:31] MED LIST changes: +DICL1GEL3 TOP; +EZET10TA21 PO; +IBUP200T45 PO; +MOBI4TAB PO; +TRAZ-163 PO; -TRAZ-257 PO; -ZONI100C17 PO; +ZONI100C2 PO; -ZONI50CA11; +ZONI50CA3
[2019-02-03] MEDS ORDERED: GI COCKTAIL 50ML BTL(HYOSCYAMINE/MAALOX/LIDOCAINE VISCOUS)(1:3:1) PO ONE (17:30)
[2019-02-03] MEDS ORDERED: SUCRALFATE 1 GM TAB PO ONE (17:30)
[2019-02-03 18:13] LABS: BASO % 0.5 % (0.0-1.0); EOS # 0.6 10^3/uL (0.0-0.5); EOS % 8.3 % (0.0-3.0); HEMATOCRIT 43.2 % (36.0-47.0); HEMOGLOBIN 14.2 g/dl (12.0-15.5); LYMPH % 30.5 % (24.0-44.0); MEAN CORPUSCULAR HEMOGLOBIN 28.6 pg (27.0-33.0); MEAN CORPUSCULAR HGB CONC 32.9 g/dl (32.0-36.5); MEAN CORPUSCULAR VOLUME 86.9 fl (80.0-96.0); MONO # 0.4 10^3/uL (0.0-0.8); MONO % 6.2 % (0.0-5.0); NEUTROPHILS # 3.6 10^3/uL (1.5-8.5); NEUTROPHILS % 54.3 % (36.0-66.0); PLATELET COUNT, AUTOMATED 282 10^3/uL (150-450); RED BLOOD COUNT 4.97 10^6/uL (4.00-5.40); WHITE BLOOD COUNT 6.6 10^3/uL (4.0-10.0)
[2019-02-03 18:41] LABS: ALT/SGPT 38 U/L (12-78); BILIRUBIN,TOTAL 0.4 MG/DL (0.2-1.0); BLOOD UREA NITROGEN 11 MG/DL (7-18); CALCIUM LEVEL 10.4 MG/DL (8.5-10.1); CARBON DIOXIDE LEVEL 30 MEQ/L (21-32); CHLORIDE LEVEL 104 MEQ/L (98-107); CK-MB VALUE MASS 1.3 NG/ML (<3.6); CPK CREATINE PHOSPHOKINASE 135 U/L (26-192); GLOMERULAR FILTRATION RATE > 60.0 (>58); GLUCOSE, FASTING 92 MG/DL (70-100); LIPASE 217 U/L (73-393); MB/CK RELATIVE INDEX 0.96 (< OR =4); POTASSIUM SERUM 4.2 MEQ/L (3.5-5.1); SODIUM LEVEL 140 MEQ/L (136-145); TOTAL PROTEIN 8.3 GM/DL (6.4-8.2); TROPONIN I < 0.02 NG/ML (< 0.10)
[2019-02-03] MEDS ORDERED: ONDANSETRON 4MG/2ML VIAL (J2405) IV ONE (18:45)
[2019-02-03] MEDS ORDERED: METHOCARBAMOL 1,000 MG/10 ML VIAL (J2800) IV ONE (18:45)
[2019-02-03] MEDS ORDERED: NS 1,000 ML IV ONE (18:45)
[2019-02-03] MEDS ORDERED: KETOROLAC 30 MG/ML VIAL (J1885) IV ONE (18:45)
[2019-02-03] MEDS ORDERED: diphenhydrAMINE INJ 50MG/ML VIAL (J1200) IV STA (18:55)
[2019-02-03] MEDS ORDERED: diphenhydrAMINE INJ 50MG/ML VIAL (J1200) As Ordered ONE (18:56)
[2019-02-03] MEDS ORDERED: hydrOXYzine 25 MG TAB PO STA (19:10)
--- NOTE | 2019-02-03 19:13 | ECGEPIP ---
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
[2019-02-03] MEDS ORDERED: methylPREDNISolone INJ 125 MG/2 ML VIAL (J2930) IV ONE (19:15)
--- NOTE | 2019-02-03 21:21 | REPVR ---
PROCEDURE INFORMATION: Exam: US Abdomen Limited, Right Upper Quadrant Exam date and time: 02/03/2019 8:40 PM Clinical history: 48 years old, female; Abdominal pain; Epigastric; Additional info: Epigastric pain TECHNIQUE: Imaging protocol: Real-time ultrasound of the abdomen with image documentation. Examination was focused on the right upper quadrant. COMPARISON: GALLBLADDER US 07/25/2014 7:12 AM FINDINGS: Liver: The liver demonstrates no focal defects. Gallbladder: The gallbladder demonstrates no wall thickening measuring 3 mm and small shadowing foci in the neck. Common bile duct: The CBD measures 4 mm. Pancreas: The pancreas is normal. Right kidney: Right kidney is normal measuring 10.1 cm with no hydronephrosis. IMPRESSION: 1. Cholelithiasis with no gallbladder wall thickening. 2. Otherwise negative right upper quadrant sonogram. Electronically signed by: Mina Mauro On 02/03/2019 21:20:59 PM
[2019-02-03 21:37] VITALS: BP 124/82
[2019-02-03] MEDS ORDERED: DICY10CA13 PO (21:39)
[2019-02-03] MEDS ORDERED: DICYCLOMINE 10 MG CAP PO ONE (22:00)
== END 2019-02-03 22:03 | disposition home or self-care (01) ==
LOC: M ED 16:31
DX: R10.13 Epigastric pain (principal); E78.5 Hyperlipidemia, unspecified; J45.909 Unspecified asthma, uncomplicated; R51 Headache; K21.9 Gastro-esophageal reflux disease without esophagitis; K57.32 Diverticulitis of large intestine without perforation or abscess without bleeding; Z79.899 Other long term (current) drug therapy; Z88.5 Allergy status to narcotic agent; Z88.0 Allergy status to penicillin; Z88.8 Allergy status to other drugs, medicaments and biological substances; Z88.1 Allergy status to other antibiotic agents; Z91.040 Latex allergy status
CPT/HCPCS: 76705; 80053; 81001; 82550; 82553; 83690; 84484; 85025; 93005; 96374; 96375; 99284; J1200; J1885; J2405; J2800; J2930

== ENCOUNTER → 2019-02-08 | Outpatient (REF) | payer BC ==
[~2019-02-08] MED LIST changes: +DICY10CA13 PO
[2019-02-12 09:15] LABS: H PYLORI QUALITATIVE IgG NEGATIVE (NEGATIVE)
== END ==
LOC: M LAB REF 12:27
PROVIDERS: ATTEND Registered Nurse
DX: R10.13 Epigastric pain (principal)

== ENCOUNTER → 2019-05-14 | Outpatient (REF) | payer BC ==
[~2019-05-14] MED LIST changes: -TRAZ-163 PO; +TRAZ-257 PO; +ZONI100C17 PO; -ZONI100C2 PO; +ZONI50CA11; -ZONI50CA3
[2019-05-14 13:50] LABS: C REACTIVE PROTEIN QUANTITATIV 0.79 MG/DL (0.00-0.30); COMPLEMENT C3 142 MG/DL (90-180); COMPLEMENT C4 34 MG/DL (10-40); RHEUMATOID FACTOR QUANT < 10.0 IU/ML (<15.0)
[2019-05-14 13:51] LABS: APPEARANCE, URINE HAZY (CLEAR); BACTERIA, URINE AUTO 1+ (NEGATIVE); BILIRUBIN, URINE AUTO NEGATIVE (NEGATIVE); BLOOD, URINE BLOOD NEGATIVE (NEGATIVE); CALCIUM OXALATE CRYSTALS SMALL; COLOR, URINE YELLOW (YELLOW); GLUCOSE, URINE (UA) AUTO NEGATIVE (NEGATIVE); KETONE, URINE AUTO NEGATIVE (NEGATIVE); LEUKOCYTE ESTERASE, URINE AUTO NEGATIVE (NEGATIVE); MUCUS, URINE MODERATE (NEGATIVE); NITRITE, URINE AUTO NEGATIVE (NEGATIVE); PROTEIN, URINE AUTO NEGATIVE (NEGATIVE); RBC, URINE AUTO 1 /HPF (0-3); SPECIFIC GRAVITY URINE AUTO 1.019 (1.002-1.035); SQUAMOUS EPITHELIAL CELL UR AU 1 /HPF (0-6); WBC, URINE AUTO 1 /HPF (0-3)
[2019-05-14 14:27] LABS: TOTAL PROTEIN,RANDOM URINE 18.7 MG/DL (0.0-12.0)
[2019-05-15 11:01] LABS: HEPATITIS C VIRUS ABY INDEX < 0.0 INDEX (<0.8)
[2019-05-16 14:07] LABS: ANA (HEP2) Negative (.); ANTI DS-DNA AB Negative (Negative); CYCLIC CITRULLINATED PEPTIDE 8 units (0-19); RNP ANTIBODY < 0.2 AI (0.0-0.9); SMITHS ANTIBODY < 0.2 AI (0.0-0.9); SSA SJOGRENS A <0.2 AI (0.0-0.9); SSB SJOGRENS B <0.2 AI (0.0-0.9)
== END ==
LOC: M SFHCRHEU 09:35
PROVIDERS: ATTEND Internal Medicine
DX: R53.82 Chronic fatigue, unspecified (principal); R10.33 Periumbilical pain; M25.571 Pain in right ankle and joints of right foot; M25.572 Pain in left ankle and joints of left foot

== ENCOUNTER → 2019-06-03 | Outpatient (CLI) | payer BC ==
--- NOTE | 2019-06-03 10:11 | REP ---
Gastric emptying nuclear scintigraphy: History: Early satiety. Technique: 1.1 mCi of technetium-99m sulfur colloid was ingested in two scrambled eggs and 6 ounces of water and sequential anterior and posterior images are acquired for an 89-minute imaging observation period. Regions of interest are drawn around the stomach to plot gastric emptying. Scintigraphic findings: Expected T1/2 is 90 minutes. Five % emptying is observed in this patient during the 89-minute imaging observation period, for a calculated T1/2 in this patient of 759 minutes. Impression: Markedly delayed gastric emptying. Electronically Signed by Abdi Polk MD 06/03/2019 10:03 A
== END ==
LOC: M RAD 07:46
PROVIDERS: ATTEND Internal Medicine Gastroenterology
DX: R68.81 Early satiety (principal); K30 Functional dyspepsia
CPT/HCPCS: 78264; A9541

== ENCOUNTER 2019-12-28 09:35 | Emergency (ER) | payer BC ==
[~2019-12-28] VITALS: Ht 149.9 cm; Wt 60.4 kg
[2019-12-28 10:07] LABS: BASO # 0.1 10^3/uL (0.0-0.2); BASO % 0.8 % (0.0-1.0); EOS # 0.6 10^3/uL (0.0-0.5); EOS % 9.7 % (0.0-3.0); HEMATOCRIT 42.3 % (36.0-47.0); HEMOGLOBIN 13.8 g/dl (12.0-15.5); LYMPH # 1.8 10^3/uL (1.5-5.0); LYMPH % 27.3 % (24.0-44.0); MEAN CORPUSCULAR HEMOGLOBIN 28.3 pg (27.0-33.0); MEAN CORPUSCULAR HGB CONC 32.6 g/dl (32.0-36.5); MEAN CORPUSCULAR VOLUME 86.7 fl (80.0-96.0); MONO # 0.5 10^3/uL (0.0-0.8); MONO % 7.3 % (0.0-5.0); NEUTROPHILS # 3.5 10^3/uL (1.5-8.5); NEUTROPHILS % 54.6 % (36.0-66.0); PLATELET COUNT, AUTOMATED 258 10^3/uL (150-450); RED BLOOD COUNT 4.88 10^6/uL (4.00-5.40); WHITE BLOOD COUNT 6.4 10^3/uL (4.0-10.0)
[2019-12-28] MEDS ORDERED: NS 1,000 ML IV ONE (10:15)
[2019-12-28] MEDS ORDERED: ONDANSETRON 4MG/2ML VIAL IV ONE (10:15)
[2019-12-28 10:39] LABS: HCG, SERUM QUALITATIVE NEGATIVE (NEGATIVE)
[2019-12-28 11:12] LABS: ALBUMIN 3.5 GM/DL (3.2-5.2); ALT/SGPT 28 U/L (12-78); BILIRUBIN,DIRECT 0.1 MG/DL (0.0-0.2); BILIRUBIN,TOTAL 0.5 MG/DL (0.2-1.0); BLOOD UREA NITROGEN 9 MG/DL (7-18); CALCIUM LEVEL 9.9 MG/DL (8.5-10.1); CARBON DIOXIDE LEVEL 28 MEQ/L (21-32); CHLORIDE LEVEL 107 MEQ/L (98-107); GLOMERULAR FILTRATION RATE > 60.0 (>58); GLUCOSE, FASTING 119 MG/DL (70-100); LIPASE 196 U/L (73-393); POTASSIUM SERUM 3.5 MEQ/L (3.5-5.1); SODIUM LEVEL 138 MEQ/L (136-145); TOTAL PROTEIN 7.5 GM/DL (6.4-8.2)
--- NOTE | 2019-12-28 12:04 | REPVR ---
PROCEDURE INFORMATION: Exam: US Abdomen, Limited; Right Upper Quadrant Exam date and time: 12/28/2019 11:27 AM Age: 49 years old Clinical indication: Abdominal pain; Epigastric; Additional info: Epigastric pain, HX of stones TECHNIQUE: Imaging protocol: US abdomen. Real time ultrasound with image documentation. Limited exam focused on the right upper quadrant. COMPARISON: Abdomen, limited US 02/03/2019 8:09 PM FINDINGS: Liver: Echogenic hepatic parenchyma likely representing steatosis, versus fibrosis or hepatitis. Gallbladder: Cholelithiasis is present within the distended gallbladder. No pericholecystic fluid or gallbladder wall thickening. No sonographic Holloway sign. Common bile duct: Common bile duct measures 3 mm. Pancreas: Visualized pancreas is unremarkable. Right kidney: The right kidney measures 10.2 cm. No hydronephrosis. IMPRESSION: 1. Cholelithiasis without evidence of cholecystitis. No biliary ductal dilation. 2. Echogenic hepatic parenchyma likely representing steatosis, versus fibrosis or hepatitis. Electronically signed by: Pedro Carrasco On 12/28/2019 12:04:02 PM
--- NOTE | 2019-12-28 12:05 | REPVR ---
PROCEDURE INFORMATION: Exam: XR Abdomen, 1 View Exam date and time: 12/28/2019 10:09 AM Age: 49 years old Clinical indication: Abdominal pain; Additional info: Epigastric pain TECHNIQUE: Imaging protocol: XR of the abdomen. Views: Frontal supine view of the abdomen. 1 View. COMPARISON: CT ABD/PEL W/IV ORAL CONTRAS 08/31/2018 12:18 PM FINDINGS: The imaged bowel gas pattern is nonobstructive. No gross pneumoperitoneum allowing for supine technique. IMPRESSION: Nonobstructive bowel gas pattern. Electronically signed by: Pedro Carrasco On 12/28/2019 12:05:12 PM
[2019-12-28 12:24] VITALS: BP 127/73
--- NOTE | 2019-12-30 12:57 | ED PDOC ---
Post-Departure Follow-Up dr batista faxed formal report of us for fu Austin Arce MD Dec 30, 2019 12:57
[2020-01-27] MEDS ORDERED: RANI15TA PO (10:43)
== END 2019-12-28 12:27 | disposition home or self-care (01) ==
LOC: M ED 09:35
DX: K80.50 Calculus of bile duct without cholangitis or cholecystitis without obstruction (principal); K76.0 Fatty (change of) liver, not elsewhere classified; R11.0 Nausea; K31.84 Gastroparesis; K58.9 Irritable bowel syndrome, unspecified; Z79.899 Other long term (current) drug therapy; Z88.5 Allergy status to narcotic agent; Z88.0 Allergy status to penicillin; Z88.8 Allergy status to other drugs, medicaments and biological substances; Z91.040 Latex allergy status
CPT/HCPCS: 74018; 76705; 80048; 80076; 81001; 83690; 84703; 85025; 96361; 96374; 99284; J2405

== ENCOUNTER → 2020-01-13 | Outpatient (REF) | payer BC, OTHER ==
[~2020-01-13] MED LIST changes: +RANI15TA PO
[2020-01-13 18:43] LABS: % LABILE ALKALINE PHOSPHATASE 77.1 %
== END ==
LOC: M LAB REF 16:46
PROVIDERS: ATTEND Family Medicine
DX: R74.8 Abnormal levels of other serum enzymes (principal)

== ENCOUNTER → 2020-01-25 | Outpatient (CLI) | payer BC, OTHER | LOC: M LABSMTC 09:36 | PROVIDERS: ATTEND Anesthesiology | DX: Z01.812 Encounter for preprocedural laboratory examination (principal); Z20.828 Contact with and (suspected) exposure to other viral communicable diseases | CPT/HCPCS: C9803; U0003 ==

== ENCOUNTER → 2020-01-27 | Outpatient (CLI) | payer BC ==
--- NOTE | 2020-01-27 11:46 | REPMRS ---
Patient History The patient states she has not had a clinical breast exam in over a year. Family history of breast cancer at age 30 in paternal aunt, colorectal cancer in maternal grandfather. 2 benign cyst aspirations of the left breast, July 13, 2009. Digital Woman Screen Mammo: January 27, 2020 - Exam #: [id number] Bilateral CC and MLO view(s) were taken. Technologist: Diane Boateng, Technologist Prior study comparison: November 06, 2017, bilateral digital woman screen mammo performed at [facility]. September 04, 2015, digital woman screen mammo performed at [facility]. February 06, 2013, digital woman screen mammo performed at [facility]. FINDINGS: There are scattered fibroglandular densities. The Volpara volumetric breast density category is:B. There has been no change in the appearance of the mammogram from the prior studies. There is a mild amount of scattered fibroglandular density which is fairly symmetric. There is no interval development of dominant mass, architectural distortion, or grouped microcalcification suggestive of malignancy. 3-D tomosynthesis shows no additional findings. Assessment: BI-RADS/ACR category 1 mammogram. Negative Mammogram. Recommendation Routine screening mammogram of both breasts in 1 year (for women over age 40). This patient's Lifetime Breast Cancer Risk is estimated at 11.2 %. This mammogram was interpreted with the aid of an FDA-approved computer-aided dectection system. Electronically Signed By: Loi Polk MD 01/27/20 [id number]
== END ==
LOC: M WHC 09:14
PROVIDERS: ATTEND Family Medicine
DX: Z12.31 Encounter for screening mammogram for malignant neoplasm of breast (principal); Z86.018 Personal history of other benign neoplasm

== ENCOUNTER 2020-01-30 11:00 | Day surgery (SDC) | payer BC ==
[~2020-01-30] VITALS: Ht 149.9 cm; Wt 57.6 kg
[~2020-01-30 11:00] MED LIST changes: +LR 1,000 ML IV ONE
[2020-01-30] MEDS ORDERED: ONDANSETRON 4MG/2ML VIAL As Ordered ONE ×2 (11:37→17:02)
[2020-01-30] MEDS ORDERED: ROCURONIUM BROMIDE 50 MG/5 ML VIAL As Ordered ONE (11:37)
[2020-01-30] MEDS ORDERED: fentaNYL 250 MCG/5 ML INJECTION (J3010) As Ordered ONE (11:37)
[2020-01-30] MEDS ORDERED: LIDOCAINE 2% 100MG/5ML SDV (FOR ANES.) As Ordered ONE (11:37)
[2020-01-30] MEDS ORDERED: propofoL 200 MG/20 ML VIAL As Ordered ONE (11:37)
[2020-01-30] MEDS ORDERED: dexameTHASONE 4 MG/ML 1ML VIAL (J1100 PER 1MG) As Ordered ONE (11:37)
[2020-01-30] MEDS ORDERED: MIDAZOLAM INJ 2MG/2ML VIAL (J2250 PER 1MG) As Ordered ONE (11:38)
[2020-01-30] MEDS ORDERED: BUPIVACAINE HCL 0.25% 30ML VIAL As Ordered ONE (12:12)
[2020-01-30] MEDS ORDERED: ePHEDrine SULFATE 25 MG/5 ML(5MG/ML) SYRINGE As Ordered ONE ×2 (12:52→14:06)
[2020-01-30] MEDS ORDERED: ACETAMINOPHEN 1000MG 100ML IV BTL (OFIRMEV) (J0131 PER 10MG) As Ordered ONE (13:32)
[2020-01-30] MEDS ORDERED: HYDROmorphone HCL 2 MG/ML 1ML VIAL (J1170) As Ordered ONE (13:46)
[2020-01-30] MEDS ORDERED: SUGAMMADEX SODIUM 500 MG/5 ML VIAL (BRIDION) As Ordered ONE (13:46)
[2020-01-30] MEDS ORDERED: ACETAMINOPHEN TAB 650MG DOSE (2X325MG) PO PRN (15:15)
[2020-01-30] MEDS ORDERED: oxyCODONE 5MG TAB PO PRN (15:15)
[2020-01-30] MEDS ORDERED: ONDANSETRON 4MG/2ML VIAL IV PRN (15:15)
[2020-01-30] MEDS ORDERED: fentaNYL 100 MCG/2 ML INJECTION (J3010) IV PRN (15:15)
[2020-01-30] MEDS ORDERED: IBUPROFEN 600MG TAB PO PRN (15:15)
[2020-01-30] MEDS ORDERED: NORCO, ANEXSIA 5/325MG TABLET (HYDROcodone/ACETAMINOPHEN) PO PRN (15:15)
[2020-01-30] MEDS ORDERED: LR 1,000 ML IV SCH (15:15)
[2020-01-30 18:05] VITALS: BP 138/65
--- NOTE | 2020-02-03 08:38 | RO ---
DATE OF OPERATION: 01/30/2020 PREOPERATIVE DIAGNOSIS: Cholelithiasis. POSTOPERATIVE DIAGNOSIS: Cholelithiasis and abnormal areas of liver. PROCEDURE: Robotic assisted laparoscopic cholecystectomy with biopsy of abnormal area of liver. SURGEON: Carlito Mack MD MATERIAL CHECKER: SINA Barry. Connie was essential for management of positioning of the robot and the robotic arms, docking and un-docking, change of instruments, retrieval of specimens and closure of the incisions. ANESTHESIA: General INDICATIONS FOR THE PROCEDURE: The patient is a 49-year-old woman with some upper abdominal pain. She was found to have cholelithiasis. It is not absolutely certain that her gallstones are the cause of her pain, but she has elected to proceed with cholecystectomy. OPERATIVE PROCEDURE: The patient was placed under general endotracheal anesthesia. The patients abdomen was prepped and draped in a sterile fashion. 25% Marcaine was infiltrated in each of the trocar sites in turn. Initially, a short incision was made in the left upper quadrant and a Veress needle was inserted, but a positive hanging drop test was not achieved. Therefore, a second longitudinal incision was made in the supraumbilical region. The Veress needle was inserted; and after positive handing drop test, the abdomen was inflated with carbon dioxide gas. An 8 mm robotic port was then placed through this incision without difficulty. The laparoscope was inserted. Examination showed that at the site of the initial Veress needle insertion the peritoneum had been punctured and there was a small amount of insufflation of the mesentery portion of the small bowel, but no evidence of bleeding or bowel perforation. Inspection of the lover showed multiple perhaps 10 to 15 flat to slightly depressed pale irregular lesions on the surface of the liver involving both the right and left lobes. Two of these were right at the edges of the right lobe of the liver. These appear to be slightly depressed relative to surrounding liver tissue. The rest of the liver appeared normal. The nature of these areas was not clear. A second 8 mm port was placed in the left upper quadrant at the initial incision. Two additional 8 mm robotic ports were placed in the right mid abdomen. The patient was tilted to an approximately 10 to 15 degree reverse Trendelenburg position. The [email or web address] patient cart was brought into position and the endoscope port was docked. Targeting took place in the right subcostal area. The additional robotic arms were then docked. A grafting retractor, fenestrated bipolar grasper and a hook cautery were then inserted through the remaining ports. I then moved to the control console to proceed with the operation. The edge of the liver was slightly elevated and the gallbladder was identified. The gallbladder was clearly not acutely inflamed, but the wall was perhaps slightly thickened. There were some adhesions of the surrounding omentum to the gallbladder. The gallbladder was grasped and elevated and the adhesions were then divided using the hook cautery. Dissection proceeded down to the gallbladder neck where the peritoneum was opened widely. With dissection, the cystic duct and cholecystectomy artery were both clearly identified and dissected free. Both structures were then doubly clipped with hemoclips and divided with the hook cautery. The gallbladder was then dissected free from the gallbladder bed using cautery dissection. Once the gallbladder was completely freed, a specimen pouch was inserted and the gallbladder was placed in the specimen pouch. The right upper quadrant was irrigated and inspected and there was no evidence of bleeding or bowel leak. I elected to take a biopsy of the one of the abnormal areas on the liver. I selected an area on the medial aspect of the right lobe that was located right along the edge. Using the scissors, a roughly 1 cm x 5 mm x 6 mm wedge of tissue was cut from the edge of the liver. This was set aside for later removal. The biopsy site was cauterized to control oozing with complete cessation of bleeding. The right upper quadrant was again irrigated and excellent hemostasis was confirmed. The small liver specimen was carefully grasped with care not to crush the specimen and removed through the left upper quadrant trocar site. This was sent as biopsy of liver abnormality. The robotic instruments were then removed and the robot un-docked. The abdomen was deflated and the trocars were removed. The gallbladder was recovered through the supraumbilical site, which necessitated extending the fascial and skin incision slightly. There were about two small angular stones palpable within the gallbladder. The fascia was closed with interrupted simple sutures of 2-0 Vicryl. The skin incisions were closed with buried 4-0 Vicryl and Steri- Strips. Light dressings were applied. The patient tolerated the procedure well without apparent complication. She was awakened in the operating room and extubated and moved to the recovery room in stable condition. KAYLEIGH
== END 2020-01-30 18:05 | disposition home or self-care (01) ==
LOC: M SDC 11:00
PROVIDERS: ATTEND Surgery
DX: K80.10 Calculus of gallbladder with chronic cholecystitis without obstruction (principal); K76.9 Liver disease, unspecified; K58.8 Other irritable bowel syndrome; G47.30 Sleep apnea, unspecified; Z79.899 Other long term (current) drug therapy; M81.0 Age-related osteoporosis without current pathological fracture; K21.9 Gastro-esophageal reflux disease without esophagitis; J45.909 Unspecified asthma, uncomplicated; G43.909 Migraine, unspecified, not intractable, without status migrainosus; Z88.5 Allergy status to narcotic agent; Z88.0 Allergy status to penicillin; Z88.1 Allergy status to other antibiotic agents; Z88.8 Allergy status to other drugs, medicaments and biological substances; Z91.040 Latex allergy status; Z91.010 Allergy to peanuts
CPT/HCPCS: 47379; 47562; 88304; 88307; 88312; J0131; J1100; J1170; J2250; J2405; J3010

== ENCOUNTER → 2020-06-02 | Outpatient (CLI) | payer BC ==
[~2020-06-02] MED LIST changes: -LR 1,000 ML IV ONE
--- NOTE | 2020-06-02 12:17 | REP ---
INDICATION: ABNORMAL LEVELS OF OTHER SERUM ENZYMES. COMPARISON: None. TECHNIQUE/RADIOTRACER AND DOSE: 21.5 mCi of Technetium-99m MDP was injected and standard whole-body bone scanning is acquired. FINDINGS: There is a normal distribution of skeletal tracer with uptake in bilateral kidneys and in the urinary bladder. There is no evidence to suggest skeletal metastatic disease. There is arthritic uptake in each knee and in each mid foot. There is mild increased uptake at the Achilles tendon insertion on the right. There is some degenerative facet uptake in the lower lumbar spine. IMPRESSION: Mild arthritic uptake pattern. No evidence to suggest skeletal metastatic disease.. <Electronically signed by Loi Polk > 06/02/20 [id number]
== END ==
LOC: M RAD 07:56
PROVIDERS: ATTEND Family Medicine
DX: R74.8 Abnormal levels of other serum enzymes (principal); M51.36 Other intervertebral disc degeneration, lumbar region
CPT/HCPCS: 78306; A9503

== ENCOUNTER → 2021-01-19 | Outpatient (CLI) | payer BC ==
[~2021-01-19] MED LIST changes: +OMEP40CA4 PO; -OMEP40CA97 PO
--- NOTE | 2021-01-19 14:05 | REP ---
INDICATION: SWELLING, MASS LUMP RT LEG COMPARISON: None. TECHNIQUE: Joe scale and color Doppler evaluation using linear high frequency transducer. FINDINGS: Ultrasound examination of the right lower extremity deep venous structures from the common femoral vein through the calf/ankle to include the peroneal, and tibial veins demonstrates normal compressibility flow and wave patterns in response to respiration and augmentation. There is no evidence for deep venous thrombosis. Contralateral CFV is patent and normal. IMPRESSION: No evidence for deep venous thrombosis. <Electronically signed by Rocky Amato > 01/19/21 [id number]
== END ==
LOC: M RAD 13:31
PROVIDERS: ATTEND Physician Assistant
DX: R22.41 Localized swelling, mass and lump, right lower limb (principal)

== ENCOUNTER → 2021-05-25 | Outpatient (CLI) | payer BC ==
[~2021-05-25] MED LIST changes: -IBUP200T45 PO; +IBUP200T46 PO
[2021-05-25 12:18] LABS: BASO # 0.1 10^3/uL (0.0-0.2); BASO % 0.7 % (0.0-1.0); EOS # 0.6 10^3/uL (0.0-0.5); EOS % 7.4 % (0.0-3.0); HEMATOCRIT 43.1 % (36.0-47.0); HEMOGLOBIN 14.3 g/dl (12.0-15.5); LYMPH # 2.4 10^3/uL (1.5-5.0); LYMPH % 31.4 % (24.0-44.0); MEAN CORPUSCULAR HEMOGLOBIN 29.4 pg (27.0-33.0); MEAN CORPUSCULAR HGB CONC 33.2 g/dl (32.0-36.5); MEAN CORPUSCULAR VOLUME 88.5 fl (80.0-96.0); MONO # 0.5 10^3/uL (0.0-0.8); MONO % 6.3 % (2.0-8.0); NEUTROPHILS # 4.1 10^3/uL (1.5-8.5); NEUTROPHILS % 53.9 % (36.0-66.0); PLATELET COUNT, AUTOMATED 281 10^3/uL (150-450); RED BLOOD COUNT 4.87 10^6/uL (4.00-5.40); WHITE BLOOD COUNT 7.6 10^3/uL (4.0-10.0)
[2021-05-25 12:58] LABS: ALBUMIN 3.7 GM/DL (3.2-5.2); ALT/SGPT 25 U/L (12-78); BILIRUBIN,TOTAL 0.3 MG/DL (0.2-1.0); BLOOD UREA NITROGEN 7 MG/DL (7-18); CALCIUM LEVEL 10.3 MG/DL (8.5-10.1); CARBON DIOXIDE LEVEL 26 MEQ/L (21-32); CHLORIDE LEVEL 108 MEQ/L (98-107); GLOMERULAR FILTRATION RATE > 60.0 (>51); GLUCOSE, FASTING 97 MG/DL (70-100); POTASSIUM SERUM 3.8 MEQ/L (3.5-5.1); SODIUM LEVEL 141 MEQ/L (136-145); TOTAL PROTEIN 7.1 GM/DL (6.4-8.2)
== END ==
LOC: M LAB 11:02
PROVIDERS: ATTEND Psychiatry & Neurology Neurology
DX: R51.9 Headache, unspecified (principal)

== ENCOUNTER → 2021-09-28 | Outpatient (REF) | payer BC ==
[~2021-09-28] MED LIST changes: -ZONI100C17 PO; +ZONI100C67 PO
== END ==
LOC: M LAB REF 16:08
PROVIDERS: ATTEND Physician Assistant Medical
DX: R10.13 Epigastric pain (principal); K21.9 Gastro-esophageal reflux disease without esophagitis

== ENCOUNTER 2021-10-20 09:32 | Emergency (ER) | payer BC ==
[~2021-10-20] VITALS: Ht 147.3 cm; Wt 57.4 kg
[2021-10-20 11:58] LABS: BASO % 0.6 % (0.0-1.0); EOS # 0.6 10^3/uL (0.0-0.5); EOS % 8.9 % (0.0-3.0); HEMATOCRIT 44.7 % (36.0-47.0); HEMOGLOBIN 14.7 g/dl (12.0-15.5); LYMPH # 2.3 10^3/uL (1.5-5.0); LYMPH % 32.1 % (24.0-44.0); MEAN CORPUSCULAR HEMOGLOBIN 29.2 pg (27.0-33.0); MEAN CORPUSCULAR HGB CONC 32.9 g/dl (32.0-36.5); MEAN CORPUSCULAR VOLUME 88.9 fl (80.0-96.0); MONO # 0.3 10^3/uL (0.0-0.8); MONO % 4.7 % (2.0-8.0); NEUTROPHILS # 3.9 10^3/uL (1.5-8.5); NEUTROPHILS % 53.3 % (36.0-66.0); PLATELET COUNT, AUTOMATED 290 10^3/uL (150-450); RED BLOOD COUNT 5.03 10^6/uL (4.00-5.40); WHITE BLOOD COUNT 7.2 10^3/uL (4.0-10.0)
[2021-10-20 12:04] LABS: PROTHROMBIN TIME 13.6 SECONDS (12.7-14.5)
[2021-10-20 12:07] LABS: D-DIMER QUANT 969.43 ng/ml (<500)
[2021-10-20] MEDS ORDERED: BENZONATATE 100MG CAPSULE PO ONE (12:35)
[2021-10-20] MEDS ORDERED: GI COCKTAIL 50ML BTL(HYOSCYAMINE/MAALOX/LIDOCAINE VISCOUS)(1:3:1) PO ONE (12:35)
[2021-10-20] MEDS ORDERED: ISOVUE-370 76% 100ML VIAL As Ordered ONE (12:44)
[2021-10-20 12:57] LABS: ALBUMIN 3.7 GM/DL (3.2-5.2); ALT/SGPT 26 U/L (12-78); BILIRUBIN,DIRECT 0.1 MG/DL (0.0-0.2); BILIRUBIN,TOTAL 0.5 MG/DL (0.2-1.0); BLOOD UREA NITROGEN 6 MG/DL (7-18); CALCIUM LEVEL 10.2 MG/DL (8.5-10.1); CARBON DIOXIDE LEVEL 30 MEQ/L (21-32); CHLORIDE LEVEL 111 MEQ/L (98-107); CK-MB VALUE MASS 1.3 NG/ML (<3.6); CPK CREATINE PHOSPHOKINASE 126 U/L (26-192); CREATININE FOR GFR 0.89 MG/DL (0.55-1.30); GLOMERULAR FILTRATION RATE > 60.0 (>51); GLUCOSE, FASTING 110 MG/DL (70-100); LIPASE 207 U/L (73-393); MB/CK RELATIVE INDEX 1.03 (< OR =4); POTASSIUM SERUM 3.8 MEQ/L (3.5-5.1); SODIUM LEVEL 143 MEQ/L (136-145)
[2021-10-20 14:13] VITALS: BP 161/79
[2021-10-20] MEDS ORDERED: BENZ200C70 PO (14:23)
== END 2021-10-20 14:30 | disposition home or self-care (01) ==
LOC: M ED 09:32
DX: R04.2 Hemoptysis (principal); K21.9 Gastro-esophageal reflux disease without esophagitis; R00.1 Bradycardia, unspecified; E78.5 Hyperlipidemia, unspecified; J45.909 Unspecified asthma, uncomplicated; Z79.899 Other long term (current) drug therapy; Z88.5 Allergy status to narcotic agent; Z88.8 Allergy status to other drugs, medicaments and biological substances; Z88.0 Allergy status to penicillin; Z88.1 Allergy status to other antibiotic agents; Z91.040 Latex allergy status; Z91.010 Allergy to peanuts
CPT/HCPCS: 36415; 71045; 71275; 80048; 80076; 82550; 82553; 83690; 84484; 85025; 85379; 85610; 93005; 99284; Q9967

== ENCOUNTER → 2022-05-24 | Outpatient (CLI) | payer OTHER ==
[~2022-05-24] MED LIST changes: +BENZ200C70 PO
== END ==
LOC: M WUC 13:07
PROVIDERS: ATTEND Physician Assistant
DX: S93.401A Sprain of unspecified ligament of right ankle, initial encounter (principal); S93.601A Unspecified sprain of right foot, initial encounter; M77.31 Calcaneal spur, right foot; M19.071 Primary osteoarthritis, right ankle and foot; M85.871 Other specified disorders of bone density and structure, right ankle and foot; X58.XXXA Exposure to other specified factors, initial encounter; Y92.9 Unspecified place or not applicable; Y93.9 Activity, unspecified; Y99.9 Unspecified external cause status

== ENCOUNTER → 2022-06-03 | Outpatient (REF) | payer OTHER | LOC: M LAB REF 16:02 | PROVIDERS: ATTEND Physician Assistant Medical | DX: R10.13 Epigastric pain (principal) ==

== ENCOUNTER 2022-06-25 13:24 | Emergency (ER) | payer OTHER ==
[~2022-06-25] VITALS: Ht 149.9 cm; Wt 53.8 kg
[~2022-06-25 13:24] MED LIST changes: -ASMA16.7 INH; +MOME13HF4 INH
[2022-06-25 14:06] LABS: BASO % 0.5 % (0.0-1.0); EOS # 0.8 10^3/uL (0.0-0.5); EOS % 9.9 % (0.0-3.0); HEMOGLOBIN 14.5 g/dl (12.0-15.5); LYMPH # 3.4 10^3/uL (1.5-5.0); LYMPH % 40.8 % (24.0-44.0); MEAN CORPUSCULAR HEMOGLOBIN 29.2 pg (27.0-33.0); MEAN CORPUSCULAR HGB CONC 33.7 g/dl (32.0-36.5); MEAN CORPUSCULAR VOLUME 86.5 fl (80.0-96.0); MONO # 0.5 10^3/uL (0.0-0.8); MONO % 6.2 % (2.0-8.0); NEUTROPHILS # 3.5 10^3/uL (1.5-8.5); NEUTROPHILS % 42.4 % (36.0-66.0); PLATELET COUNT, AUTOMATED 256 10^3/uL (150-450); RED BLOOD COUNT 4.97 10^6/uL (4.00-5.40); WHITE BLOOD COUNT 8.3 10^3/uL (4.0-10.0)
[2022-06-25 14:31] LABS: ALBUMIN 3.7 G/DL (3.2-5.2); BILIRUBIN,DIRECT 0.2 MG/DL (<0.4); BILIRUBIN,TOTAL 0.5 MG/DL (0.3-1.2); TOTAL PROTEIN 7.2 G/DL (5.7-8.2)
[2022-06-25] MEDS ORDERED: ISOVUE-370 76% 100ML VIAL As Ordered ONE (15:00)
[2022-06-25 16:59] VITALS: BP 146/74
== END 2022-06-25 18:10 | disposition home or self-care (01) ==
LOC: M ED 13:24
DX: R10.13 Epigastric pain (principal); R11.2 Nausea with vomiting, unspecified; R19.7 Diarrhea, unspecified; Z79.899 Other long term (current) drug therapy; Z88.5 Allergy status to narcotic agent; Z88.8 Allergy status to other drugs, medicaments and biological substances; Z88.0 Allergy status to penicillin; Z88.1 Allergy status to other antibiotic agents; Z91.010 Allergy to peanuts; Z91.040 Latex allergy status

== ENCOUNTER 2023-04-02 09:29 | Emergency (ER) | payer BC, OTHER ==
[~2023-04-02] VITALS: Ht 149.9 cm; Wt 55.1 kg
[~2023-04-02 09:29] MED LIST changes: +DICL100G10 TOP; -DICL1GEL3 TOP; +DICY-61 PO; -DICY10CA13 PO
[2023-04-02] MEDS ORDERED: NYST-13 (09:39)
[2023-04-02] MEDS ORDERED: SUCR1ORA (09:39)
[2023-04-02 10:15] LABS: BASO % 0.5 % (0.0-1.0); EOS # 0.3 10^3/uL (0.0-0.5); EOS % 5.6 % (0.0-3.0); HEMATOCRIT 41.7 % (36.0-47.0); LYMPH # 2.1 10^3/uL (1.5-5.0); LYMPH % 36.3 % (24.0-44.0); MEAN CORPUSCULAR HEMOGLOBIN 29.5 pg (27.0-33.0); MEAN CORPUSCULAR HGB CONC 33.6 g/dl (32.0-36.5); MONO # 0.3 10^3/uL (0.0-0.8); MONO % 5.6 % (2.0-8.0); NEUTROPHILS # 3.1 10^3/uL (1.5-8.5); NEUTROPHILS % 51.7 % (36.0-66.0); PLATELET COUNT, AUTOMATED 246 10^3/uL (150-450); RED BLOOD COUNT 4.74 10^6/uL (4.00-5.40); WHITE BLOOD COUNT 5.9 10^3/uL (4.0-10.0)
[2023-04-02] MEDS ORDERED: ISOVUE-370 76% 100ML VIAL As Ordered ONE (10:25)
[2023-04-02 10:40] LABS: AMYLASE 65 U/L (30-118)
[2023-04-02 10:55] LABS: LIPASE 49 U/L (12-53)
[2023-04-02] MEDS ORDERED: METOCLOPRAMIDE 5 MG TAB PO ONE (15:00)
[2023-04-02] MEDS ORDERED: REGL5TAB2 PO (16:02)
[2023-04-02 16:21] VITALS: BP 123/57; TEMP 98; O2SAT 98
== END 2023-04-02 16:25 | disposition home or self-care (01) ==
LOC: M ED 09:29
DX: R19.2 Visible peristalsis (principal); K58.9 Irritable bowel syndrome, unspecified; Z79.52 Long term (current) use of systemic steroids; Z79.83 Long term (current) use of bisphosphonates; Z79.810 Long term (current) use of selective estrogen receptor modulators (SERMs); Z79.899 Other long term (current) drug therapy; Z88.0 Allergy status to penicillin; Z88.1 Allergy status to other antibiotic agents; Z88.8 Allergy status to other drugs, medicaments and biological substances; Z91.010 Allergy to peanuts
CPT/HCPCS: 36415; 74177; 80047; 81001; 82150; 83690; 85025; 87086; 99283; Q9967

== ENCOUNTER → 2023-09-01 | Outpatient (CLI) | payer OTHER ==
[~2023-09-01] MED LIST changes: +NYST-13; +REGL5TAB2 PO; +SUCR1ORA
== END ==
LOC: M RAD 11:43
PROVIDERS: ATTEND Nurse Practitioner Family
DX: R05.9 Cough, unspecified (principal); R06.02 Shortness of breath

== ENCOUNTER → 2024-01-02 | Outpatient (CLI) | payer OTHER | LOC: M RAD 16:26 | PROVIDERS: ATTEND Physician Assistant Medical | DX: R05.9 Cough, unspecified (principal) ==

== ENCOUNTER 2024-02-20 15:38 | Emergency (ER) | payer OTHER ==
[~2024-02-20] VITALS: Ht 149.9 cm; Wt 54.9 kg
[2024-02-20 16:57] LABS: BASO % 0.5 % (0.0-1.0); EOS # 0.4 10^3/uL (0.0-0.5); EOS % 5.1 % (0.0-3.0); HEMATOCRIT 41.6 % (36.0-47.0); LYMPH % 35.9 % (24.0-44.0); MEAN CORPUSCULAR HEMOGLOBIN 29.5 pg (27.0-33.0); MEAN CORPUSCULAR HGB CONC 33.7 g/dl (32.0-36.5); MEAN CORPUSCULAR VOLUME 87.6 fl (80.0-96.0); MONO # 0.4 10^3/uL (0.0-0.8); NEUTROPHILS # 4.5 10^3/uL (1.5-8.5); NEUTROPHILS % 53.3 % (36.0-66.0); PLATELET COUNT, AUTOMATED 266 10^3/uL (150-450); RED BLOOD COUNT 4.75 10^6/uL (4.00-5.40); WHITE BLOOD COUNT 8.5 10^3/uL (4.0-10.0)
[2024-02-20 17:21] LABS: BLOOD UREA NITROGEN 10 MG/DL (9-23); CALCIUM LEVEL 10.2 MG/DL (8.5-10.1); CARBON DIOXIDE LEVEL 28 MMOL/L (20-31); CHLORIDE LEVEL 109 MMOL/L (98-107); CREATININE FOR GFR 0.82 MG/DL (0.55-1.30); GLOMERULAR FILTRATION RATE > 60.0 (>51); GLUCOSE, FASTING 112 MG/DL (60-100); POTASSIUM SERUM 3.6 MMOL/L (3.5-5.1); SODIUM LEVEL 143 MMOL/L (136-145)
[2024-02-20 17:22] LABS: ALBUMIN 3.7 G/DL (3.2-5.2); BILIRUBIN,DIRECT 0.1 MG/DL (<0.4); BILIRUBIN,TOTAL 0.4 MG/DL (0.3-1.2); TOTAL PROTEIN 7.2 G/DL (5.7-8.2)
[2024-02-20 17:40] VITALS: TEMP 97
[2024-02-20] MEDS ORDERED: ISOVUE-370 76% 100ML VIAL As Ordered ONE (19:36)
[2024-02-20] MEDS: ONDANSETRON 4MG 2ML VIAL IV ONE (19:53)
[2024-02-20] MEDS: MORPHINE 2 MG/ML 1ML VIAL IV ONE (19:55)
[2024-02-20] MEDS: KETOROLAC 30 MG/ML 1ML VIAL IV ONE (20:55)
[2024-02-20] MEDS ORDERED: TRAM50TA2 PO (21:25)
[2024-02-20] MEDS ORDERED: ANUS25SU PR (21:25)
[2024-02-20 21:28] VITALS: BP 128/73; O2SAT 97
[2024-02-20] MEDS ORDERED: CIPR-249 PO (21:35)
== END 2024-02-20 21:40 | disposition home or self-care (01) ==
LOC: M ED 15:38
DX: R31.9 Hematuria, unspecified (principal); K62.5 Hemorrhage of anus and rectum; K64.8 Other hemorrhoids; Z87.19 Personal history of other diseases of the digestive system; Z79.899 Other long term (current) drug therapy; Z88.0 Allergy status to penicillin; Z88.1 Allergy status to other antibiotic agents; Z88.8 Allergy status to other drugs, medicaments and biological substances; Z91.018 Allergy to other foods
CPT/HCPCS: 74177; 80048; 80076; 81001; 85025; 87086; 96374; 96375; 99284; J1885; J2405; Q9967

== ENCOUNTER → 2025-02-17 | Outpatient (CLI) | payer OTHER ==
[~2025-02-17] MED LIST changes: +ANUS25SU PR; +CIPR-249 PO; -EZET10TA21 PO; +EZET10TA57 PO; -NYST-13; +NYST0.1C; +TRAM50TA2 PO
== END ==
LOC: M WHC 12:48
PROVIDERS: ATTEND Family Medicine
DX: D48.62 Neoplasm of uncertain behavior of left breast (principal)
CPT/HCPCS: 76642; 77066; G0279

== ENCOUNTER → 2025-03-05 | Outpatient (REF) | payer OTHER | LOC: M LAB REF 16:49 | DX: E07.9 Disorder of thyroid, unspecified (principal) ==

== ENCOUNTER → 2025-03-06 | Outpatient (CLI) | payer OTHER | LOC: M WUC 14:13 | DX: R05.9 Cough, unspecified (principal); R07.9 Chest pain, unspecified ==